=== PATIENT | male | born 1985 | race African-American/Black ===

== ENCOUNTER 2016-11-18 22:49 | Emergency (ER) | payer OTHER ==
[2016-11-18 22:54] VITALS: BP 121/81; PULSE 76; RESP 14; TEMP 98.2; O2SAT 96
--- NOTE | 2016-11-19 00:16 | EDPHY ---
H & P Time Seen by Provider: 11/18/16 23:36 HPI/ROS: CHIEF COMPLAINT: Right ring finger injury HISTORY OF PRESENT ILLNESS: 31-year-old male presents emergency department sent from work after an injury to his right ring finger. Patient reports he was cleaning with a rag and bumped his finger on the counter, he reports he is unable to straighten the distal aspect of his ring finger. Mild discomfort. He is [id number], no other complaints. Smoking Status: Never smoked Physical Exam: GEN: Awake, alert, oriented, no acute distress RESP: nl resp effort MSK: Right ring finger with the DIP joint in flexion, unable to extend actively. Sensation intact to light touch, cap refill less than 2 seconds SKIN: No break in skin Constitutional: Initial Vital Signs Temperature (C) 36.8 C 11/18/16 22:51 Heart Rate 76 11/18/16 22:51 Respiratory Rate 14 11/18/16 22:51 Blood Pressure 121/81 H 11/18/16 22:51 O2 Sat (%) 96 11/18/16 22:51 O2 Delivery Mode Room Air Allergies/Adverse Reactions: No Known Allergies Allergy (Unverified 11/18/16 22:51) Home Medications: Medication Instructions Recorded NK [No Known Home Meds] 11/18/16 MDM/Departure - MDM Imaging Results: Imaging Impressions Finger X-Ray 11/18/16 23:37 Impression: No definite fracture of the right fourth finger. Imaging: I viewed and interpreted images myself Procedures: Right ring finger placed in a Stax splint - Depart Disposition: Home, Routine, Self-Care Clinical Impression: Mallet finger of right hand Condition: Good Instructions: Jammed Finger (ED) Additional Instructions: DO NOT REMOVE YOUR SPLINT Follow up with the hand surgeon in the next 7-14 days. Rest, elevate. Take 600mg of ibuprofen every 8 hours as needed for pain. Follow up with workers compensation tomorrow. Stand Alone Forms: Work Comp Follow Up, Work Limited Duty Referrals: Miguel Angel Archibald MD [Medical Doctor] - As per Instructions (Hand doctor nutrition assistant )
== END 2016-11-19 00:33 | disposition home or self-care (01) ==
DX: M20.011 Mallet finger of right finger(s) (principal); X58.XXXA Exposure to other specified factors, initial encounter; Y99.8 Other external cause status; Y93.89 Activity, other specified

== ENCOUNTER 2018-02-28 18:42 | Emergency (ER) | payer OTHER ==
[2018-02-28 18:47] VITALS: BP 130/95
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
== END 2018-02-28 19:17 | disposition home or self-care (01) ==
DX: Z04.1 Encounter for examination and observation following transport accident (principal)